=== PATIENT | female | born 1990 | race Caucasian/White ===

== ENCOUNTER 2017-12-11 00:31 | Inpatient (IN) | payer OTHER ==
[2017-12-11 01:11] VITALS: BMI 36.2
[2017-12-11] MEDS ORDERED: Lactated Ringer's 1,000 ML IV ONE (01:12)
[2017-12-11] MEDS ORDERED: Oxytocin 30 UNIT 30 UNITS/500 ML BAG IV ONE (01:14)
[2017-12-11] MEDS ORDERED: OXYTOCIN/0.9 % NS 20 UNIT/1,000 ML BAG IV SCH (01:15)
[2017-12-11] MEDS ORDERED: Lactated Ringer's 1,000 ML IV SCH (01:15)
[2017-12-11] MEDS ORDERED: Fentanyl/Bupivacaine HCl 250 ML EPI ONE (01:22)
[2017-12-11 01:38] LABS: BASO % 0.2 % (0.0-2.0); EOS # 0.2 K/uL (0.0-0.7); EOS % 1.7 % (0.0-4.0); HEMOGLOBIN 13.9 g/dL (12.0-16.0); LYMPH # 1.5 K/uL (1.0-4.3); LYMPH % 16.6 % (20.0-40.0); MEAN CELL VOLUME 84.3 fl (81.0-99.0); MEAN CORPUSCULAR HEMOGLOBIN 26.8 pg (27.0-31.0); MEAN CORPUSCULAR HGB CONC 31.7 g/dL (33.0-37.0); MEAN PLATELET VOLUME 9.9 fl (7.2-11.7); MONO # 0.8 K/uL (0.0-0.8); MONO % 8.3 % (0.0-10.0); NEUT # 6.7 K/uL (1.8-7.0); NEUT % 73.2 % (50.0-75.0); RBC 5.19 Mil/uL (3.80-5.20); RED CELL DISTRIBUTION WIDTH 15.1 % (11.5-14.5); WHITE BLOOD COUNT 9.2 K/uL (4.8-10.8)
[2017-12-11] MEDS ORDERED: Lidocaine 1% Inj (20ml) ONE (01:38)
--- NOTE | 2017-12-11 01:49 | OBADHP ---
Datetime: 12/11/2017 01:35 Admit Comment, IP Provider: 27 y/o @ 38.5wks based on LMP 03/15/2017 w/ZACK o f 12/20/2017 is c/o contractions that began at 10pm followed by a loss of fluid at 11:21pm. She has had FM. She denied an y vb. Last sexual activity was 2 days ago. Denies any fever, chills, n/v/d, dysuria, chest pain or sh ortness of breath. Patient of Dr. Jimmie OWEN. OBGYNhx: none PMH: anxiety, migraine, arthritis Allergies: Benadryl-burning _ swelling of arms; dark dye Meds: pnv Famhx: Mom- DM; Dad- DM Sochx: denies tobacco, EtOH or elicit drug use Surghx: percutaneous pinning of 4th finger ROS: 12 point reviewed _ negative unless otherwise mentioned in HPI VS: BP: 143/87 SPO2- 100% RR-16 Pulse-95bpm Gen: facial grimacing Cardio: s1s2 RRR, no murmurs Resp: cta b/l Abd: Gravid, BS+ FHR: reassuring Pelvic: 6cm, 100% effaced, -1 Ext: nonedematous, calves nontender A/P: 27 y/o @ 38.5wks based on LMP 03/15/2017 w/ZACK o f 12/20/2017 is c/o contractions. 1. Admit to unit with initiation of labor protocol. 2. IV fluids. 3. Continue to monitor. Patient seen and examined with Dr. Savita Zuluaga, , PGY-1 OB Hospitalist Addendum: Pt seen and examined by me. Agree w/ above. 27 yo G1 at 38+5 wks w/ ZACK 12/20/2017 by LMP 03/15/2017 in active labor, desires epidural. GBS negative. FHT reassuring. (ES ) Pelvic Type - PN: Adequate Extremities - PN: Normal Abdomen - PN: Normal Lungs - PN: Normal Heart - PN: Normal General - PN: Normal FHR - Baseline A Provider: 135 Gestation - Est Wks by US: 38.5 Pool Provider: Negative IP Hx Assessment: The History has been Reviewed and is Current Vital Signs Provider: Reviewed; Within Normal Limits IP Chief Complaint: Uterine contractions; Maternal discomfort NICHD Variability Prov Fetus A: Moderate 6-25bpm NICHD Accel Fetus A IP Provider: 10X10 FHR Category Provider Fetus A: Category I NICHD Decel Fetus A IP Provider: None Dilatation, Provider: 6 Effacement, Provider: 100 Station, Provider: -1 Genitourinary Exam: Normal EGA AdmitDate IP: 39.0 IP Adm Impression: Term, intrauterine IP Admit Plan: Admit to unit Datetime: 12/11/2017 01:17 Membranes, Provider: Ruptured
--- NOTE | 2017-12-11 05:41 | OBPN ---
Datetime: 12/11/2017 05:36 IP Progress Impression: Normal progression of labor IP Procedures: Sterile Vag Exam IP Progress Plan: Continue present management Membranes, Provider: Ruptured Contraction Comments Provider: Q2-4 FHR - Baseline A Provider: 150's IP Progress Note Comment: 27 yo G1 at 38+5 wks in active labor now completely dilated Will start pushing GBS negative, FHT reassuring NICHD Variability Prov Fetus A: Moderate 6-25bpm Dilatation, Provider: 10 Effacement, Provider: 100 Station, Provider: 1 Datetime: 12/11/2017 01:35 Pool Provider: Negative Gestation - Est Wks by US: 38.5 Vital Signs Provider: Reviewed; Within Normal Limits NICHD Accel Fetus A IP Provider: 10X10 FHR Category Provider Fetus A: Category I NICHD Decel Fetus A IP Provider: None
[2017-12-11] MEDS ORDERED: Benzocaine/Menthol SPRAY TOP PRN (07:30)
[2017-12-11] MEDS ORDERED: Oxycodone/Acetaminophen 5/325 mg Tab PO PRN (07:30)
--- NOTE | 2017-12-11 07:38 | OBDS ---
DELIVERY PERSONNEL Delivery Doctor: Gely Barney MD Archery Equipment Repairer: Ritchie Romero RN/ Eloise Nicole RN Anesthesiologist: Ophelia Rodgers Resident: Dr. Stephen Ca MATERNAL INFORMATION Delivery Anesthesia: Epidural Medications in Delivery: Pitocin Estimated Blood Loss (ml): 150 Placenta Cultured: No Maternal Complications: None Provider Comments: Pt progressed to complete and pushed to deliver a viable female delivered through clear fluid at 0641. Nuchal cord x 1 easily reduced. Apgars 9 and 9. Wt 2790 gms, 6#2.4. Cord doubly clamped after delayed clamping and FOB cut the cord. Cord blood collected. Placenta del ivered spontaneously intact w/a 3vc at at 0645. Left periurethral tear repaired w/ 3-0v. First degr ee tear repaired w/ 2-0 rapide and 3-0v. Vaginal tissue was delicate and oozing and so the vagina wa s packed w/ a vaginal pack soaked w/ ice water. Osei was placed in the bladder. Rectum intact. EBL 150mL LABOR SUMMARY EDC: 12/18/2017 00:00 No. Babies in Womb: 0 Attempted: No Labor Anesthesia: Epidural LABOR INFORMATION Reason for Induction: Not Applicable Onset of Labor: 12/10/2017 22:00 Complete Dilatation: 12/11/2017 05:35 Other Ripening Agents: N/A Oxytocin: N/A Group B Beta Strep: Negative Antibiotics # of Doses: N/A Antibiotics Time of Last Dose: N/A Steroids Given: None Reason Steroids Not Administered: Not Applicable Other Reason Not Administered: N/A MEMBRANES Membranes Rupture Method: Spontaneous Rupture of Membranes: 12/11/2017 04:30 Length of Rupture (hrs): 2.18 Amniotic Fluid Color: Clear Amniotic Fluid Amount: Large Amniotic Fluid Odor: None STAGES OF LABOR Stage 1 hrs: 7 Stage 1 min: 35 Stage 2 hrs: 1 Stage 2 min: 6 Stage 3 hrs: 0 Stage 3 min: 4 Total Time in Labor hrs: 8 Total Time in Labor min: 45 VAGINAL DELIVERY Episiotomy: None Laceration Extension: First Degree Laceration Repair: Yes Laceration Repair Note: Left periurethral tear repaired w/ 3-0v. First degree tear repaired w/ 2-0 rapide and 3-0v. Vaginal tissue was delicate and oozing and so the vagina was packed w/ a vaginal pa ck soaked w/ ice water. Osei was placed in the bladder. Rectum intact. Initial Vag Sponge Count: 5 laps _ 10 4x4's Final Vag Sponge Count: 5 laps _ 10 4x4's Initial Vag Sharps Count: 3 Final Vag Sharps Count: 3 Sponge Count Correct: Yes Sharps Count Correct: Yes Count Comment: Count correct and Dr Barney acknowledged. BABY A INFORMATION Infant Delivery Date/Time: 12/11/2017 06:41 Method of Delivery: Vaginal Born in Route : No : N/A Forceps: N/A Vacuum Extraction: N/A Shoulder Dystocia : No SHOULDER DYSTOCIA BABY A Infant Delivery Date/Time: 12/11/2017 06:41 PRESENTATION/POSITION BABY A Presentation: Cephalic Cephalic Presentation: Vertex Breech Presentation: N/A PLACENTA INFORMATION BABY A Placenta Delivery Time : 12/11/2017 06:45 Placenta Method of Delivery: Spontaneous Placenta Status: Delivered INFANT INFORMATION BABY A Gestational Age at Delivery: 39.0 Gestational Status: Term Infant Outcome : Liveborn Condition : Stable Sex: Female IDENTIFICATION/MEDS BABY A ID Band Number: [id number] WEIGHT/LENGTH BABY A Infant Birthweight (gms): 2790 Infant Weight (lb): 6 Infant Weight (oz): 2 CORD INFORMATION BABY A No. Cord Vessels: 3
[2017-12-12 06:32] LABS: BASO % 0.2 % (0.0-2.0); EOS # 0.3 K/uL (0.0-0.7); EOS % 2.6 % (0.0-4.0); HEMOGLOBIN 11.8 g/dL (12.0-16.0); LYMPH # 1.5 K/uL (1.0-4.3); LYMPH % 14.5 % (20.0-40.0); MEAN CELL VOLUME 84.2 fl (81.0-99.0); MEAN CORPUSCULAR HGB CONC 32.1 g/dL (33.0-37.0); MEAN PLATELET VOLUME 10.1 fl (7.2-11.7); MONO # 0.8 K/uL (0.0-0.8); MONO % 7.9 % (0.0-10.0); NEUT # 7.7 K/uL (1.8-7.0); NEUT % 74.8 % (50.0-75.0); NRBC % 0.1 % (0.0-0.0); RBC 4.36 Mil/uL (3.80-5.20); RED CELL DISTRIBUTION WIDTH 15.1 % (11.5-14.5); WHITE BLOOD COUNT 10.2 K/uL (4.8-10.8)
[2017-12-12] MEDS ORDERED: Hydrocortisone-Pramoxine 1%-1% Foam(10 gm) TOP PRN (14:43)
--- NOTE | 2017-12-12 18:51 | OBPPN ---
Datetime: 12/12/2017 06:50 PP Pain Prov: Within normal limits PP Nausea Prov: Denies PP Flatus Prov: Yes PP BM Prov: Yes PP Heart Prov: Normal PP Lungs Prov: Normal PP Abdomen/Uterus Prov: Normal PP Lochia Prov: Normal PP Extremities Prov: Normal PP Impression Prov: Normal progression PP Plan Prov: Continue present management PP Progress Note Prov: 27 y/o , PPD1 s/p 12/11/2017 @ 641AM was seen and examined at bedside this AM. No adverse overnight. Pt still c/o pelvic pain. Last dose of ibuprofen received yesterday. She also reports small bump in anal region noticed when wiping. Pt is ambulatory, tolerating PO regu lar diet, Breast feed only w/o difficulty. Lochia is similar to menses, w/o voiding difficulties. +Fl atus _ +BM. Denies f/c/n/v/d, cp or breathing difficulties. VS: BP: 114/59 Temp: 97.9F, 89bpm, RR-16 spo2-100% PE: GEN: Laying in supine position, breathing comfortably in bed CVS: S1, S2 RRR LUNGS: CTA B/L ABD: +BS, soft with appropriate tenderness, fundus @ umbilical level. Rectum: nonthrombosed, nonbleeding external hemorrhoid noted, tender to palpation EXT: Nonedematous, calves nontender NEURO: AAOx3 A/P: 30 y/o , PPD1 s/p -Continue regular diet as tolerated. -Colace 100mg BID for hemorrhoid. -Ambulation as tolerated encouraged. - encouraged. -Continue pain management as needed. Case discussed with attending. -Dr. GABBI Zuluaga, , PGY-1 The patient was seen with the resident I agree with the note Vital Signs Provider PP: Reviewed; Within Normal Limits Datetime: 12/11/2017 15:00 PP Breasts Prov: Not Done PP Vulva/Perineum Prov: Not Done PP CVA Tenderness Prov: Not Done PP C/S Incision Prov: Not Applicable
[2017-12-13 23:09] VITALS: BP 121/77; PULSE 75; RESP 18; TEMP 98.6; O2SAT 99
== END 2017-12-13 18:45 | disposition home or self-care (01) | DRG 560 ==
LOC: H.EROB2 00:31 → H.L&D 01:12 → H.OB/GYN 10:14
PROVIDERS: ADMIT Obstetrics & Gynecology; ATTEND Obstetrics & Gynecology
PROC: 10E0XZZ Delivery of Products of Conception, External Approach (ICD-10-PCS; principal; 2017-12-11)
PROC: 0UQMXZZ Repair Vulva, External Approach (ICD-10-PCS; 2017-12-11)
PROC: 0HQ9XZZ Repair Perineum Skin, External Approach (ICD-10-PCS; 2017-12-11)
DX: O69.81X0 Labor and delivery complicated by cord around neck, without compression, not applicable or unspecified (principal); O71.82 Other specified trauma to perineum and vulva; O70.0 First degree perineal laceration during delivery; Z37.0 Single live birth; Z3A.39 39 weeks gestation of pregnancy